=== PATIENT | male | born 1995 | race Two or more races ===

== ENCOUNTER 2019-04-16 22:08 | Emergency (ER) | payer MEDICAID, OTHER ==
[~2019-04-16] VITALS: Ht 180.3 cm; Wt 83.9 kg
--- NOTE | 2019-04-16 23:15 | NUR ---
DR SAWYER IS SPEAKING TO THE PT.
[2019-04-16] MEDS ORDERED: OLANZAPINE 5 MG TABLET ONE (23:22)
[2019-04-16] MEDS ORDERED: ALPRAZOLAM 0.25 MG TABLET ONE (23:24)
[2019-04-16 23:30] VITALS: BP 118/77
[2019-04-16] MEDS ORDERED: ALPRAZOLAM 0.25 MG TABLET PO ONE (23:30)
--- NOTE | 2019-04-16 23:30 | NUR ---
Patient discharged to home in stable condition. Written and verbal after care instructions given. Patient verbalizes understanding of instruction AND RX. PT AMBULATED OUT WITH A STEADY GAIT. PT'S FRIEND IS DRIVING PT HOME.
== END 2019-04-16 23:30 | disposition home or self-care (01) ==
LOC: ER 22:09
DX: F41.9 Anxiety disorder, unspecified (principal); G47.00 Insomnia, unspecified